=== PATIENT | female | born 1960 | race Caucasian/White ===

== ENCOUNTER 2016-11-14 07:33 | Emergency (ER) | payer OTHER ==
[~2016-11-14] VITALS: Ht 162.6 cm; Wt 81.8 kg
[2016-11-14 07:37] VITALS: BP 148/84; PULSE 73; RESP 14; O2SAT 98
--- NOTE | 2016-11-14 07:48 | ED.REPORT ---
HPI-Abd Pain F 40 and Over Date of Service Nov 14, 2016 ED Provider: Raj Wilks MD 56 year old female with a history of cholecystitis and IBS presents to the ER accompanied by her daughter complaining of severe sharp epigastric and RUQ abdominal pain that awakened her from sleeping today at 02:00. Pain has worsened since onset, and has begun radiating across her abdomen diffusely, and into her back. She also admits to several bouts of diarrhea followed by constipation several days ago. Associated symptoms include nausea and vomiting with symptom onset this morning. Patient denies fever, and dysuria. She also admits to difficulty voiding, which is an ongoing problem followed by her OBGYN. Nursing Notes Stated Complaint: ABDOMINAL PAIN Chief Complaint: Female Abdominal Pain Nursing Notes Reviewed: Yes Allergies: Coded Allergies: NSAIDS (Non-Steroidal Anti-Inflamma (Verified Allergy, Unknown, gallbladder attack, 11/14/16) prednisone (Verified Allergy, Unknown, diarrhea, 11/14/16) Scheduled PRN Hydrocodone-Acetaminophen 5-325 mg (Hydrocodone-Acetaminophen 5-325 mg) 1 Each Tablet 1-2 TABLET PO Q4H PRN PRN For Pain Ondansetron ODT (Zofran ODT) 4 Mg Tablet 4 MG PO Q4H PRN PRN For Nausea General Time Seen by MD: 07:47 Chief Complaint Abdominal pain Hx Obtained From: Patient Arrived By: Walk-in Sudden in Onset?: No Onset Occurred: 5 - 8 hours ago (02:00 today) Symptom Duration: Since onset Progression since Onset: Gradually worsening Location: : RUQ Quality: Sharp Radiation: : Back Severity: Current: Severe Severity: Maximum: Severe Associated with: Reports: Nausea, Vomiting, Denies: Dysuria, Fever Context Related History: Reports: Cholecystitis Past Medical History Past Medical History Notes: PCP Andree Rangel Past Medical History Cholecystitis IBS Past Surgical History Abdominoplasty Cervical spine tumor removal Social History Alcohol Use: 1-3 per day Other Social History: Good social support Ambulatory Status Independent Review of Systems Constitutional: Denies: Chills, Fever Respiratory: Denies: Non-productive cough GI: Reports: Abdominal pain, Constipation, Diarrhea, Nausea, Vomiting, Denies: Hematemesis, Hematochezia Female: Denies: Dysuria, Hematuria Complete sys rev & neg: except as marked. Physical Exam Vital Signs Vital Signs (First) Date Time Temp Pulse Resp B/P Pulse Ox O2 Delivery O2 Flow Rate FiO2 11/14/16 07:37 36.3 73 14 148/84 98 Room Air Initial VS: Reviewed Head / Eyes: Atraumatic, Normocephalic Neck: Supple, Non-tender, Full range of motion Extremities: Vascular intact, Neuro intact, No swelling, No tenderness Skin: Warm, Dry, No cyanosis Neurologic: Alert, Oriented, Nonfocal General/Constitutional: Awake, Alert, Well developed, Well nourished Appearance / Presentation: Positive: Uncomfortable Respiratory / Chest: Breath sounds NL, Breath sounds = bilat, No respiratory distress, No rales, No rhonchi, No wheezing, No stridor Cardiovascular: Heart rate NL, Regular rhythm, Heart sounds NL, Peripheral circulation NL Abdomen: Soft, No guarding, No rebound, BS normoactive Tenderness/Guarding/Rebound: Positive: Guarding involuntary, Guarding voluntary , Tender RUQ... (Moderate) Transverse scar across lower abdomen. Back: Inspection NL, Non-tender, No CVA tenderness ENT: Airway patent, Mucous membranes moist, Pharynx NL Interpretation & Diagnostics PROCEDURE: US ABDOMEN ([id number]) IMPRESSION: 1. Changes suggesting mild fatty infiltration in the liver. 2. Multiple small gallstones in the gallbladder without changes to indicate acute cholecystitis. 3. Common bile duct is 7.6 mm is borderline prominent. Correlation with laboratory values is to rule in or out significance is needed. Dictated by: Jesus Torres M.D. on 11/14/2016 at 9:45 Approved by: Jesus Torres M.D. on 11/14/2016 at 9:49 Lab Results Interpretation Result Diagram: 11/14/16 0800 11/14/16 0800 Test 11/14/16 08:00 11/14/16 10:45 White Blood Count 11.4th/mm3 (3.8-10.1) Red Blood Count 4.18mil/mm3 (3.90-5.20) Hemoglobin 12.9g/dL (12.0-15.6) Hematocrit 38.8% (35.0-46.0) Mean Corpuscular Volume 92.8fL (81-100) Mean Corpuscular Hemoglobin 30.9pg (27.0-35.0) Mean Corpuscular Hemoglobin Concent 33.2% (32.0-37.0) Red Cell Distribution Width 12.7% (12.3-15.4) Platelet Count 242bil/L (150-400) Neutrophils (%) (Auto) 84.8% (40-74) Lymphocytes (%) (Auto) 10.8% (14-46) Monocytes (%) (Auto) 3.6% (4-12) Eosinophils (%) (Auto) 0.4% (0-5) Basophils (%) (Auto) 0.2% (0-3) Sodium Level 142mEq/L (134-144) Potassium Level 3.6mEq/L (3.5-5.2) Chloride Level 102mEq/L (97-108) Carbon Dioxide Level 25mmol/L (18-29) Blood Urea Nitrogen 14mg/dL (6-24) Creatinine 0.70mg/dL (0.57-1.00) Estimat Glomerular Filtration Rate 124mL/min (>59) Glucose Level 130mg/dL (60-99) Calcium Level 8.8mg/dL (8.5-10.1) Magnesium Level 1.9mg/dL (1.6-2.6) Total Bilirubin 1.0mg/dL (0.0-1.2) Aspartate Amino Transf (AST/SGOT) 201U/L (0-50) Alanine Aminotransferase (ALT/SGPT) 79U/L (0-32) Alkaline Phosphatase 63U/L (25-150) Total Protein 6.6g/dL (6.4-8.4) Albumin 4.3g/dL (3.4-5.0) Lipase 31U/L (13-60) Hold [place] Top Tube Received (Received) Urine Color Yellow (YELLOW) Urine Appearance Clear (CLEAR,HAZY) Urine pH 7.0 (5.0-8.0) Urine Specific [place] 1.020 (1.003-1.035) Urine Protein Negativemg/dL (NEG,TRACE) Urine Glucose (UA) Negativemg/dL (NEGATIVE) Urine Ketones Negativemg/dL (NEGATIVE) Urine Occult Blood Negative (NEGATIVE) Urine Nitrite Negative (NEGATIVE) Urine Bilirubin Negative (NEGATIVE) Urine Urobilinogen Normalmg/dL (NORMAL) Urine Leukocyte Esterase Trace (NEGATIVE) Urine RBC 0-2/hpf (0-2) Urine WBC 6-10/hpf (0-5) Urine Epithelial Cells Few/hpf (NONE-MOD) Urine Crystals None seen (NONE SEEN) Urine Bacteria None/hpf (NONE-FEW) Urine Hyaline Casts None/lpf (NONE) Urine Granular Casts None seen (NONE SEEN) Urine Waxy Casts None seen (NONE SEEN) Urine Red Blood Cell Casts None seen (NONE SEEN) Urine White Blood Cell Casts None seen (NONE SEEN) Urine Mucus None seen (None Seen) Urine Trichomonas None seen (NONE SEEN) Urine Yeast None (NONE SEEN) Urinalysis Comment None Urine Culture Reflexed Indicated Lab Results Interpretation: Pyuria noted no symptoms of UTI. culture sent Re-Eval/Medical Decision Source of Hx: Old records Re-Evaluation/Progress #1: Time of Eval: 11:06 Re-Evaluation/Progress Note: Patient continues to have some mild pain and nausea. Decreased RUQ tenderness. Starting PO challenge. Re-Evaluation/Progress #2: Time of Eval: 11:36 Re-Evaluation/Progress Note: Discussed lab and US results and plan to discharge. Patient is amenable to the plan. Return precautions given. All other questions addressed. Counseled Regarding: Diagnosis, Lab results, Need for follow-up, When/why to return to ED Discharge & Departure Primary Impression: Symptomatic cholelithiasis Disposition: Home Discharge Condition All VS Reviewed: Yes Condition: Stable Patient Instructions: Biliary Colic (ED) Additional Instructions: Emergency Department evaluation included interview, examination labs and ultrasound. Examination and imaging are consistent with symptomatic gallstone disease. Given previous episodes of similar symptoms, it is worth considering having gallbladder removed. Gallstones were demonstrated on today's ultrasound. Avoid rich and fatty foods. May use hydrocodone/APAP as needed for pain and ondansetron as needed for nausea. Call to make a follow-up appointment with a general surgeon. Return to emergency department for uncontrolled pain or vomiting fever or shaking chills. Referrals: Kyle He MD Attestation Portions of this note were transcribed by Bob Triplett. I, Dr. Wilks, personally performed the history, physical exam and medical decision-making; I reviewed and confirmed the accuracy of the information in the transcribed note. Signed by: Enzo Perez, 11/14/2016, and 11:37 copies to: Kyle He MD, Donald L MD Nov 14, 2016 07:48 BOB TRIPLETT Nov 14, 2016 08:00
[2016-11-14] MEDS ORDERED: 0.9% Sodium Chloride 1,000 ML IV ONE (07:59)
[2016-11-14] MEDS: HYDROmorphone 1 mg/mL Inj IVPUSH PRN ×2 (08:17→11:02)
[2016-11-14] MEDS: Ondansetron 2 mg/mL 2 mL Inj IVPUSH PRN ×4 (08:18→12:35)
[2016-11-14 08:23] LABS: BASOPHILS % (AUTO) 0.2 % (0-3); EOSINOPHILS % (AUTO) 0.4 % (0-5); MONOCYTES % (AUTO) 3.6 % (4-12); Mean Corpuscular Hemoglobin 30.9 pg (27.0-35.0); Mean Corpuscular Volume 92.8 fL (81-100); NEUTROPHILS % (AUTO) 84.8 % (40-74); Platelet Count 242 bil/L (150-400)
[2016-11-14 08:46] LABS: Magnesium 1.9 mg/dL (1.6-2.6)
--- NOTE | 2016-11-14 09:51 | DRSVH ---
PROCEDURE: US ABDOMEN ([id number]) INDICATIONS: ruq abd pain TECHNIQUE: Real-time scanning was performed of the abdominal and retroperitoneal organs, with image documentatio n. COMPARISON: None. FINDINGS: Liver: Liver is normal in size at 15.5 cm and homogeneous in echotexture. Echotexture however is di ffusely increased suggesting fatty infiltration. Gallbladder: There are multiple small mobile gallstones in the gallbladder. There is no wall thickeni ng or tenderness. Biliary ducts: Intrahepatic bile ducts are non-dilated. Extrahepatic bile duct caliber measures 7.6 mm. Normal is 6-7 mm or less in diameter, or 10 mm or less post-cholecystectomy. Pancreas: All portions of the pancreas are sonographically normal. Spleen: Spleen is normal in size and homogeneous in echotexture. Maximum dimension of the spleen is 11.4 cm. Kidneys: Kidneys are normal in size and echotexture. Right kidney measures 10.7 cm long; left kidne y measures 9.8 cm long. No hydronephrosis or nephrolithiasis. No solid masses. Aorta: The entire abdominal aorta is normal in caliber at less than 3 cm. Iliacs: Proximal common iliac arteries are normal in caliber at less than 2.5 cm. the right is 9 mm and the left 10 mm. IVC: Intrahepatic inferior vena cava is patent. Miscellaneous: No free abdominal fluid. IMPRESSION: 1. Changes suggesting mild fatty infiltration in the liver. 2. Multiple small gallstones in the gallbladder without changes to indicate acute cholecystitis. 3. Common bile duct is 7.6 mm is borderline prominent. Correlation with laboratory values is to rule in or out significance is needed. Dictated by: Jesus Torres M.D. on 11/14/2016 at 9:45 Approved by: Jesus Torres M.D. on 11/14/2016 at 9:49
[2016-11-14 11:21] LABS: APPEARANCE,URINE CLEAR (CLEAR,HAZY); COLOR,URINE YELLOW (YELLOW); OCCULT BLOOD,URINE NEGATIVE (NEGATIVE); UROBILINOGEN,URINE NORMAL (NORMAL)
[2016-11-14 11:52] VITALS: BP 121/87; PULSE 70; RESP 16; O2SAT 97
[2016-11-14] MEDS ORDERED: ONDA4TAB9 PO (12:18)
[2016-11-14] MEDS ORDERED: HYDR-4003 PO (12:18)
[2016-11-14 12:25] VITALS: BP 132/92; PULSE 72; RESP 16; O2SAT 97
[2016-11-14 12:31] VITALS: BP 132/92; PULSE 72; RESP 16; O2SAT 97
== END 2016-11-14 12:39 | disposition home or self-care (01) ==
LOC: SED 07:33
DX: K80.20 Calculus of gallbladder without cholecystitis without obstruction (principal); K58.2 Mixed irritable bowel syndrome; Z88.8 Allergy status to other drugs, medicaments and biological substances
CPT/HCPCS: 36415; 76700; 80053; 81000; 83690; 83735; 85025; 87086; 87088; 96361; 96374; 96375; 96376; 99285; J1170; J2405; J7030